=== PATIENT | male | born 1975 | race Caucasian/White ===

== ENCOUNTER → 2022-01-14 11:01 | Outpatient (BNVA) | payer OTHER, SELFPAY | PROVIDERS: Visit Provider Internal Medicine | DX: S06.0X0A Concussion without loss of consciousness, initial encounter (principal); W23.1XXA Caught, crushed, jammed, or pinched between stationary objects, initial encounter; W22.01XA Walked into wall, initial encounter | CPT/HCPCS: 70450; 99203 ==